=== PATIENT | female | born 2005 ===

== ENCOUNTER 2024-11-07 07:11 | Emergency (ER) | payer MEDICAID ==
[~2024-11-07] VITALS: Ht 152.4 cm; Wt 78.0 kg
[2024-11-07] MEDS ORDERED: SERT50 (08:03)
[2024-11-07] MEDS ORDERED: TERB5 (08:03)
[2024-11-07] MEDS ORDERED: ONDA4 PO (08:03)
[2024-11-07] MEDS ORDERED: Dexamethasone Sod Phos 10 MG/ML 1ML VIAL PO ONE (08:15)
[2024-11-07] MEDS ORDERED: Penicillin G Benzathine 1.2 MMU / 2 ML SYR IM ONE (08:55)
== END 2024-11-07 09:20 | disposition home or self-care (01) ==
LOC: ER 07:11
DX: J02.9 Acute pharyngitis, unspecified (principal)
CPT/HCPCS: 87081; 87430; 96372; 99284-25; J0561; J1100